=== PATIENT | female | born 1985 | race Caucasian/White ===

== ENCOUNTER 2019-02-10 20:37 | Emergency (ER) | payer OTHER ==
[~2019-02-10] VITALS: Ht 162.6 cm; Wt 49.0 kg
[2019-02-10 20:49] VITALS: BP 131/81
== END 2019-02-10 21:40 | disposition home or self-care (01) ==
LOC: ER 20:41
DX: J06.9 Acute upper respiratory infection, unspecified (principal)
CPT/HCPCS: 71045-TC